=== PATIENT | male | born 2000 | race Caucasian/White ===

== ENCOUNTER 2022-06-20 15:57 | Emergency (ER) | payer SELFPAY ==
[~2022-06-20] VITALS: Ht 180.3 cm; Wt 63.0 kg
[2022-06-20 16:55] VITALS: BP 123/71
[2022-06-20] MEDS ORDERED: ALBUTEROL SULFATE/IPRATROPIU 3 ML SOL IH ONE (20:20)
--- NOTE | 2022-06-20 20:41 | NUR ---
PT AMBULATED TO ER BED 9 FROM RAD
[2022-06-20 20:50] LABS: BASOPHILS % (AUTO) 0.4 % (0.0-2.0); EOSINOPHILS % (AUTO) 0.4 % (0.0-4.0); HEMATOCRIT 45.6 % (36-52); HEMOGLOBIN 15.3 g/dL (12.0-18.0); LYMPHOCYTES # (AUTO) 1.4 K/uL (2.0-11.5); MEAN CORPUSCULAR HEMOGLOBIN 32 pg (27-31); MEAN CORPUSCULAR HGB CONC 34 g/dL (33-37); MEAN CORPUSCULAR VOLUME 94.5 fL (80-94); MONOCYTES # (AUTO) 0.5 K/uL (0.8-1.0); NEUTROPHILS # (AUTO) 5.4 K/uL (1.8-7.7); NEUTROPHILS % (AUTO) 73.2 % (42.2-75.2); PLATELET COUNT (AUTO) 288 K/uL (140-450); RED BLOOD CELL COUNT(AUTO) 4.83 MIL/uL (4.20-6.10); RED CELL DISTRIBUTION WIDTH 12.7 % (11.6-13.7); WHITE BLOOD COUNT (AUTO) 7.4 K/uL (4.5-11.0)
[2022-06-20 21:03] LABS: ANION GAP 16.5 (8-16); CARBON DIOXIDE 26.7 mmol/L (21-32); CREATININE 0.8 mg/dL (0.6-1.3); POTASSIUM 4.2 mmol/L (3.5-5.1)
[2022-06-20] MEDS ORDERED: ALBU0.0912 IH (21:46)
[2022-06-20] MEDS ORDERED: PRED20TA5 PO (21:46)
[2022-06-20] MEDS ORDERED: MUC600 PO (21:46)
[2022-06-20 21:57] VITALS: BP 126/70
--- NOTE | 2022-06-20 21:57 | NUR ---
Patient discharged with v/s stable. Written and verbal after care instructions given ON BR[facility] and explained. Patient alert, oriented and verbalized understanding of instructions. Ambulatory with steady gait. All questions addressed prior to discharge. ID band removed. Patient advised to follow up with PMD. Rx of ALBUTEROL, MUCINEX, DELTASONE given. Patient educated on indication of medication including possible reaction and side effects. Opportunity to ask questions provided and answered.
== END 2022-06-20 21:57 | disposition home or self-care (01) ==
LOC: MED 15:57
DX: J45.909 Unspecified asthma, uncomplicated (principal)
CPT/HCPCS: 36415; 71045; 80048; 84484; 85025; 93005; 94640; 99285

== ENCOUNTER 2022-07-24 10:37 | Emergency (ER) | payer MEDICAID ==
[~2022-07-24] VITALS: Ht 180.3 cm; Wt 62.6 kg
[~2022-07-24 10:37] MED LIST: ALBU0.0912 IH; MUC600 PO; PRED20TA5 PO
[2022-07-24 11:10] VITALS: BP 115/77
--- NOTE | 2022-07-24 11:14 | NUR ---
BELGICA. HANDED ON URINE CUP.
--- NOTE | 2022-07-24 11:43 | NUR ---
BIB SELF C/O BLOOD IN STOOL , INTERMITENT ABDOMINAL PAIN X 5 MONTHS. PMH: DENIES. ABDOMEN SOFT, NO TENDERNESS AT THIS TIME.DENIES N/V/D; SKIN IS PINK/WARM/DRY; AAOX4 WITH EVEN AND STEADY GAIT; LUNGS CLEAR BL; HR EVEN AND REGULAR; PT DENIES ANY FEVER, CP, SOB, OR COUGH AT THIS TIME; PATIENT STATES PAIN OF 0/10 AT THIS TIME.
[2022-07-24 11:52] LABS: BASOPHILS % (AUTO) 0.5 % (0.0-2.0); EOSINOPHILS # (AUTO) 0.1 K/uL (0-0.4); EOSINOPHILS % (AUTO) 1.3 % (0.0-4.0); HEMATOCRIT 44.2 % (36-52); HEMOGLOBIN 15.5 g/dL (12.0-18.0); LYMPHOCYTES # (AUTO) 1.3 K/uL (2.0-11.5); LYMPHOCYTES % (AUTO) 27.5 % (20.5-51.1); MEAN CORPUSCULAR HEMOGLOBIN 33 pg (27-31); MEAN CORPUSCULAR HGB CONC 35 g/dL (33-37); MEAN CORPUSCULAR VOLUME 93.4 fL (80-94); MONOCYTES # (AUTO) 0.4 K/uL (0.8-1.0); MONOCYTES % (AUTO) 8.4 % (1.7-9.3); NEUTROPHILS # (AUTO) 2.8 K/uL (1.8-7.7); NEUTROPHILS % (AUTO) 62.3 % (42.2-75.2); PLATELET COUNT (AUTO) 197 K/uL (140-450); RED BLOOD CELL COUNT(AUTO) 4.73 MIL/uL (4.20-6.10); RED CELL DISTRIBUTION WIDTH 12.4 % (11.6-13.7); WHITE BLOOD COUNT (AUTO) 4.5 K/uL (4.5-11.0)
[2022-07-24 12:13] LABS: ALBUMIN 4.5 g/dL (3.4-5.0); ANION GAP 17.2 (8-16); POTASSIUM 4.2 mmol/L (3.5-5.1); TOTAL BILIRUBIN 1.2 mg/dL (0.0-1.0)
[2022-07-24 14:00] VITALS: BP 121/80
--- NOTE | 2022-07-24 14:15 | NUR ---
Note sue in EDM - 07/24/22 at 1429 by PHSEP Patient discharged with v/s stable. Written and verbal after care instructions given and explained. Patient verbalized understanding. Ambulatory with steady gait. All questions addressed prior to discharge. Advised to follow up with PMD.
--- NOTE | 2022-07-24 14:29 | NUR ---
Patient discharged with v/s stable. Written and verbal after care instructions given and explained. Patient verbalized understanding. Ambulatory with steady gait. All questions addressed prior to discharge. Advised to follow up with PMD.
== END 2022-07-24 14:28 | disposition home or self-care (01) ==
LOC: MED 10:37
DX: K92.2 Gastrointestinal hemorrhage, unspecified (principal); Z79.899 Other long term (current) drug therapy
CPT/HCPCS: 36415; 74177; 80053; 81002; 85025; 99285; Q9967